=== PATIENT | male | born 1955 | race Caucasian/White ===

== ENCOUNTER 2020-01-19 15:00 | Outpatient (CLI) | payer MEDICARE, MEDICAID ==
[~2020-01-19] VITALS: Ht 172 cm; Wt 97.7 kg
[2020-01-19] MEDS ORDERED: DOXY100C PO (15:08)
[2020-01-19] MEDS ORDERED: LORA-405 PO (15:08)
[2020-01-19] MEDS ORDERED: TOPI100T PO (15:08)
[2020-01-19] MEDS ORDERED: LEVE100015 PO (15:08)
[2020-01-19] MEDS ORDERED: PHEN-515 PO (15:08)
[2020-01-19] MEDS ORDERED: POTA-51 PO (15:08)
[2020-01-19] MEDS ORDERED: CLON1TAB PO (15:08)
[2020-01-19] MEDS ORDERED: CARB200T6 PO (15:08)
[2020-01-19] MEDS ORDERED: LISI-556 PO (15:08)
[2020-01-19] MEDS ORDERED: SENN-259 PO (15:08)
[2020-01-19] MEDS ORDERED: LACO50TA2 PO (15:08)
[2020-01-19] MEDS ORDERED: NF-NACL1GT PO (15:08)
[2020-01-19] MEDS ORDERED: POTA20PA28 PO (15:08)
[2020-01-19] MEDS ORDERED: WHEA1POW6 PO (15:08)
[2020-01-19] MEDS ORDERED: ACET325C7 PO (15:08)
[2020-01-19] MEDS ORDERED: ACET1TAB43 PO ×2 (15:08)
[2020-01-19] MEDS ORDERED: LORA2DIS5 IJ (15:08)
[2020-01-19] MEDS ORDERED: BUPR-42 PO (15:08)
[2020-01-19] MEDS ORDERED: PEDI18TA2 PO (15:08)
== END 2020-01-20 10:35 | disposition home or self-care (01) ==
LOC: PREOP 15:00
PROVIDERS: ATTEND Surgery
DX: Z01.818 Encounter for other preprocedural examination (principal)

== ENCOUNTER 2020-01-24 10:42 | Day surgery (SDC) | payer MEDICARE, MEDICAID ==
[~2020-01-24] VITALS: Ht 172 cm; Wt 97.7 kg
[~2020-01-24 10:42] MED LIST: ACET1TAB43 PO; ACET325C7 PO; BUPR-42 PO; CARB200T6 PO; CLON1TAB PO; DOXY100C PO; LACO50TA2 PO; LEVE100015 PO; LISI-556 PO; LORA-405 PO; LORA2DIS5 IJ; NF-NACL1GT PO; PEDI18TA2 PO; PHEN-515 PO; POTA-51 PO; POTA20PA28 PO; SENN-259 PO; TOPI100T PO; WHEA1POW6 PO
[2020-01-24] MEDS ORDERED: LACTATED RINGERS 1,000 ML IV STA (10:45)
[2020-01-24] MEDS ORDERED: LACTATED RINGERS 1,000 ML IV ONE (11:03)
[2020-01-24] MEDS ORDERED: PROPOFOL INJECTION 50 ML IV ONE (11:07)
--- NOTE | 2020-01-24 11:22 | Progress Note-Pre Operative ---
Pre-Operative Progress Note H&P Reviewed The H&P was reviewed, patient examined and no changes noted. Time Seen by Provider: 11: Date H&P Reviewed: Jan 24, 2020 Time H&P Reviewed: :17 Pre-Operative Diagnosis: Screening MARIE DONOVAN DO Jan 24, 2020 11:22
[2020-01-24 11:30] VITALS: BP 104/62
[2020-01-24 12:40] VITALS: BP 151/72
[2020-01-24 12:45] VITALS: BP 167/76
--- NOTE | 2020-01-24 12:47 | Progress Note-Post Operative ---
Post-Operative Progess Note Surgeon (s)/Survey Interviewer (s) Surgeon MARIE DONOVAN DO Survey Interviewer: TUCKER Johnson Pre-Operative Diagnosis Screening Post-Operative Diagnosis Polyps Melanosis coli Large Ext and Customer Care Assistant Hemorrhoids Procedure & Operative Findings Date of Procedure 01/24/20 Procedure Performed/Findings Colon with snare Colon with hot bx Anesthesia Type IV sedation by FLOOR FINISHER HELPER Estimated Blood Loss Estimated blood loss (mL): scant Specimens/Packing Specimens Removed Cecal polyps Asc colon polyps Transverse colon polyps MARIE DONOVAN DO Jan 24, 2020 12:46
--- NOTE | 2020-01-24 12:48 | Endoscopy Discharge Instruct ---
Endo Procedure/Findings Findings 1.: Polyp 2.: Internal Hemorrhoids 3.: Other Findings (Melanosis Coli) Discharge Instructions - Activity: You might feel a little sleepy until tomorrow. This is due to the medicine you received to relax you. Until tomorrow, you should: NOT drive a car, operate machinery or power tools. NOT drink any alcoholic beverages. NOT make any important decisions or sign importortant papers. Do not return to work until tomorrow, unless otherwise instructed. Resume previous activities tomorrow. Diet: Start by taking liquids. If you tolerate liquids, advance to solid food. Notify Physician - If you experience excessive bleeding, unusual abdominal pain, fever, or chest pain, contact your doctor immediately. MARIE DONOVAN DO Jan 24, 2020 12:48
--- NOTE | 2020-01-24 12:49 | Anesthesia-General Post-Op ---
MAC Patient Condition Mental Status/LOC: Same as Preop Cardiovascular: Satisfactory Nausea/Vomiting: Absent Respiratory: Satisfactory Pain: Controlled Complications: Absent Post Op Complications Complications None Follow Up Care/Instructions Patient Instructions None needed. Anesthesiology Discharge Order Discharge Order Patient is doing well, no complaints, stable vital signs, no apparent adverse anesthesia problems. No complications reported per nursing. ASHUTOSH GILL CRNA Jan 24, 2020 12:49
[2020-01-24 12:50] VITALS: BP_SYST 153; BP_SYST 166; BP_DIAS 63; BP_DIAS 75
[2020-01-24 13:20] VITALS: BP 141/73
[2020-01-24 13:39] VITALS: BP 141/73
--- NOTE | 2020-01-25 01:17 | OPERATIVE REPORT ---
DATE OF SERVICE: 01/24/2020 PREOPERATIVE DIAGNOSIS: Screening colonoscopy. POSTOPERATIVE DIAGNOSES: 1. Multiple colon polyps. 2. Melanosis coli. 3. Large external and internal hemorrhoids. PROCEDURES: 1. Colonoscopy with snare polypectomy. 2. Colonoscopy with hot biopsy. SURGEON: Heber Harrison DO MANUFACTURING MANAGEMENT ASSOCIATE: Garrison Hull MS3. ANESTHESIA: IV sedation by the ELECTRONIC WARFARE OFFICER. SPECIMEN: Two transverse colon polyp, one ascending colon polyp and four cecal polyps. BLOOD LOSS: Scant. FLUIDS: Per anesthesia. POSTOPERATIVE CONDITION: Stable. INDICATION FOR PROCEDURE: The patient is a 64-year-old male who has never had a colonoscopy and needed a screening. FINDINGS: The patient had multiple polyps, four large ones in the cecum. He also had a pretty severe melanosis coli and he was found to have a large external hemorrhoid as well as some grade II to III internal hemorrhoids. PROCEDURE NOTE: After informed consent was obtained, the patient was brought to the endoscopy suite, placed in bed in left lateral decubitus position. He was administered IV sedation by the ELECTRONIC WARFARE OFFICER who then monitored his vitals the entire time, heart rate, blood pressure and pulse ox. We then inserted the scope. Immediately upon entry, noted melanosis coli pretty severe. Started taking pictures and pushed in and on the way in, in the transverse colon saw small flat polyps. I elected to do hot biopsies of these, took pictures. There were two flat polyps in the transverse colon and pushed past here into the ascending colon and saw a larger polyp, took a picture of this and then did snare polypectomy of this and able to get it remove all of it. The patient has a very floppy colon, but finally able to get to the cecum, noted the appendiceal orifice and able to get into the terminal ileum and in the cecum saw multiple large polyps. These were snared to be completely removed. Had actually had to push the scope in about 160 cm and have to get him on his back to try get in there. Once able to then snare four polyps in the cecum, large polyps removed completely with a snare polypectomy and then slowly withdrew the scope insufflating to look circumferentially at the urena looking the cecum, up the ascending colon to the hepatic flexure, down the transverse colon, the splenic flexure, into the descending colon down in the sigmoid and finally into the rectum, retroflexed in the rectal vault, saw some internal hemorrhoids, but it was actually much better to see externally. Took a picture of this. Externally could see large external hemorrhoids and then with mild eventration could see the internal hemorrhoids. I took a picture of this as well. Scope was removed. The patient tolerated the procedure. He was recovered in endoscopy suite. Job ID: [id number] DocumentID: [id number] Dictated Date: 01/24/2020 15:29:26 Olive Brine Tester Date: 01/25/2020 01:16:49 Dictated By: DO GAVI ANTHONY
== END 2020-01-24 13:35 | disposition home or self-care (01) ==
LOC: EDBD → ENDO 10:42
PROVIDERS: ATTEND Surgery
DX: Z12.11 Encounter for screening for malignant neoplasm of colon (principal); D12.3 Benign neoplasm of transverse colon; D12.2 Benign neoplasm of ascending colon; D12.0 Benign neoplasm of cecum; K64.4 Residual hemorrhoidal skin tags; K64.8 Other hemorrhoids; K63.89 Other specified diseases of intestine; I10 Essential (primary) hypertension; F32.9 Major depressive disorder, single episode, unspecified; Z79.899 Other long term (current) drug therapy; Z88.0 Allergy status to penicillin; Z88.8 Allergy status to other drugs, medicaments and biological substances; Z86.73 Personal history of transient ischemic attack (TIA), and cerebral infarction without residual deficits
CPT/HCPCS: 88305